=== PATIENT | male | born 1935 | race Caucasian/White ===

== ENCOUNTER 2017-03-18 00:54 | Day surgery (SDC) | payer MEDICARE, OTHER ==
[~2017-03-18 00:54] MED LIST: ALLERGY MEDICAT25 MG PO; AMLO5 PO; ATOR10; ATOR40TA PO; ATOR80 PO; Adult Low Dose81 MG PO; CLOP75 PO; DIPH50 PO; ELIQUIS2.5 MG PO; ELIQUIS5 MG PO; FOLI1 PO; HYDACE25S; INFLECTRA100 MG IV; LISINOPRIL PO; MELO7.5 PO; METHOTREXA25 MG/1 M8 IJ; METO50ER PO; MULVITMIND PO; Mobic15 MG PO; OMEPRAZOLE MAGN20 MG PO; OXYACE7.5T PO; PRAV20 PO; Prinivil10 MG PO; Remicade100 MG IV; TAMS.4ER PO
[2017-07-06] MEDS ORDERED: VITAMIN D50000 UNIT PO (09:11)
[2017-08-24] MEDS ORDERED: MELO7.5 PO (10:10)
[2017-08-24] MEDS ORDERED: METO50ER PO (10:10)
[2017-08-24] MEDS ORDERED: CLOP75 PO (10:10)
[2017-08-24] MEDS ORDERED: AMLO5 PO (10:12)
[2017-08-24] MEDS ORDERED: ATOR80 PO (10:12)
[2017-08-24] MEDS ORDERED: OMEPRAZOLE MAGN20 MG PO (10:13)
[2017-08-24] MEDS ORDERED: ASPI81CH PO (10:13)
[2017-08-24] MEDS ORDERED: FOLI1 PO (10:14)
[2017-08-24] MEDS ORDERED: REMICADE (10:14)
[2017-08-24] MEDS ORDERED: METHOTREXA25 MG/1 M8 IM (10:14)
[2017-08-24] MEDS ORDERED: ELIQUIS2.5 MG PO (10:17)
[2017-08-24] MEDS ORDERED: Vitamin B Comple1 EA PO (10:17)
[2017-08-24] MEDS ORDERED: Vitamin D2000 UNIT PO (10:18)
== END 2017-03-18 11:38 | disposition home or self-care (01) ==
LOC: ATC 00:54
DX: K51.90 Ulcerative colitis, unspecified, without complications (principal)
CPT/HCPCS: 96413; 96415; J7050; Q5102-ZB

== ENCOUNTER 2017-05-11 00:22 | Day surgery (SDC) | payer MEDICARE, OTHER ==
[2017-07-06] MEDS ORDERED: VITAMIN D50000 UNIT PO (09:11)
[2017-08-24] MEDS ORDERED: METO50ER PO (10:10)
[2017-08-24] MEDS ORDERED: CLOP75 PO (10:10)
[2017-08-24] MEDS ORDERED: MELO7.5 PO (10:10)
[2017-08-24] MEDS ORDERED: ATOR80 PO (10:12)
[2017-08-24] MEDS ORDERED: AMLO5 PO (10:12)
[2017-08-24] MEDS ORDERED: ASPI81CH PO (10:13)
[2017-08-24] MEDS ORDERED: OMEPRAZOLE MAGN20 MG PO (10:13)
[2017-08-24] MEDS ORDERED: REMICADE (10:14)
[2017-08-24] MEDS ORDERED: FOLI1 PO (10:14)
[2017-08-24] MEDS ORDERED: METHOTREXA25 MG/1 M8 IM (10:14)
[2017-08-24] MEDS ORDERED: Vitamin B Comple1 EA PO (10:17)
[2017-08-24] MEDS ORDERED: ELIQUIS2.5 MG PO (10:17)
[2017-08-24] MEDS ORDERED: Vitamin D2000 UNIT PO (10:18)
== END 2017-05-11 11:42 | disposition home or self-care (01) ==
LOC: ATC 00:22
DX: K51.90 Ulcerative colitis, unspecified, without complications (principal)
CPT/HCPCS: 96413; 96415; J7050; Q5102-ZB

== ENCOUNTER 2017-08-31 06:53 | Day surgery (SDC) | payer MEDICARE, OTHER ==
[~2017-08-31 06:53] MED LIST changes: +ASPI81CH PO; +METHOTREXA25 MG/1 M8 IM; +REMICADE; +VITAMIN D50000 UNIT PO; +Vitamin B Comple1 EA PO; +Vitamin D2000 UNIT PO
== END 2017-08-31 11:56 | disposition home or self-care (01) ==
LOC: ORSCMMR 06:53 → ORD 08:45 → ORSCMMR 11:56
PROVIDERS: Surgery
PROC: 0YU50JZ Supplement Right Inguinal Region with Synthetic Substitute, Open Approach (ICD-10-PCS; principal; 2017-08-31 08:45)
DX: K40.90 Unilateral inguinal hernia, without obstruction or gangrene, not specified as recurrent (principal); I25.10 Atherosclerotic heart disease of native coronary artery without angina pectoris; I25.2 Old myocardial infarction; Z79.899 Other long term (current) drug therapy
CPT/HCPCS: C1781; J0690; J2001; J2250; J3010; J7120

== ENCOUNTER 2018-01-13 01:11 | Day surgery (SDC) | payer MEDICARE, OTHER | END 2018-01-13 11:06 | disposition home or self-care (01) | LOC: ATC 01:11 | DX: K51.90 Ulcerative colitis, unspecified, without complications (principal); Z87.891 Personal history of nicotine dependence | CPT/HCPCS: 96413; 96415; J7050; Q5103 ==

== ENCOUNTER 2018-03-10 02:22 | Day surgery (SDC) | payer MEDICARE, OTHER | END 2018-03-10 10:59 | disposition home or self-care (01) | LOC: ATC 02:22 | DX: K51.90 Ulcerative colitis, unspecified, without complications (principal) | CPT/HCPCS: 96413; 96415; J7050; Q5103 ==

== ENCOUNTER 2018-05-05 00:47 | Day surgery (SDC) | payer MEDICARE, OTHER ==
[2018-05-05] MEDS ORDERED: LOSA50 PO (09:04)
[2018-05-05] MEDS ORDERED: HYDCHL25 PO (09:04)
[2018-05-05] MEDS ORDERED: INFLECTRA100 MG IV (09:07)
== END 2018-05-05 11:46 | disposition home or self-care (01) ==
LOC: ATC 00:47
DX: K51.90 Ulcerative colitis, unspecified, without complications (principal)
CPT/HCPCS: J7050; Q5103

== ENCOUNTER 2018-06-30 07:15 | Day surgery (SDC) | payer MEDICARE, OTHER ==
[~2018-06-30 07:15] MED LIST changes: +HYDCHL25 PO; +LOSA50 PO
== END 2018-06-30 22:40 | disposition home or self-care (01) ==
LOC: ATC 07:15
DX: K51.90 Ulcerative colitis, unspecified, without complications (principal); M19.071 Primary osteoarthritis, right ankle and foot; M06.9 Rheumatoid arthritis, unspecified; I48.0 Paroxysmal atrial fibrillation; I25.10 Atherosclerotic heart disease of native coronary artery without angina pectoris; I25.2 Old myocardial infarction; K21.9 Gastro-esophageal reflux disease without esophagitis; Z87.891 Personal history of nicotine dependence; Z79.899 Other long term (current) drug therapy; Z79.02 Long term (current) use of antithrombotics/antiplatelets; Z79.82 Long term (current) use of aspirin
CPT/HCPCS: 96413; 96415; J7050; Q5103

== ENCOUNTER 2018-08-25 02:00 | Day surgery (SDC) | payer MEDICARE, OTHER | END 2018-08-25 12:03 | disposition home or self-care (01) | LOC: ATC 02:00 | DX: K51.90 Ulcerative colitis, unspecified, without complications (principal); I25.10 Atherosclerotic heart disease of native coronary artery without angina pectoris; Z87.891 Personal history of nicotine dependence | CPT/HCPCS: 96413; 96415 ==

== ENCOUNTER 2018-10-20 00:19 | Day surgery (SDC) | payer MEDICARE, OTHER | END 2018-10-20 12:21 | disposition home or self-care (01) | LOC: ATC 00:19 | DX: K51.90 Ulcerative colitis, unspecified, without complications (principal); M19.071 Primary osteoarthritis, right ankle and foot; M06.9 Rheumatoid arthritis, unspecified; I48.0 Paroxysmal atrial fibrillation; I25.10 Atherosclerotic heart disease of native coronary artery without angina pectoris; I25.2 Old myocardial infarction; Z79.899 Other long term (current) drug therapy; Z79.02 Long term (current) use of antithrombotics/antiplatelets; Z79.82 Long term (current) use of aspirin; Z87.891 Personal history of nicotine dependence | CPT/HCPCS: 96413; 96415; J1720; J7050; Q5103 ==

== ENCOUNTER 2018-12-13 08:52 | Day surgery (SDC) | payer MEDICARE, OTHER | END 2018-12-13 11:45 | disposition home or self-care (01) | LOC: ATC 08:52 | DX: K51.90 Ulcerative colitis, unspecified, without complications (principal); I25.10 Atherosclerotic heart disease of native coronary artery without angina pectoris; I25.2 Old myocardial infarction; M06.9 Rheumatoid arthritis, unspecified; Z95.5 Presence of coronary angioplasty implant and graft; Z87.891 Personal history of nicotine dependence | CPT/HCPCS: 96413; 96415; J7050; Q5103 ==

== ENCOUNTER 2019-02-07 00:09 | Day surgery (SDC) | payer MEDICARE, OTHER | END 2019-02-07 11:24 | disposition home or self-care (01) | LOC: ATC 00:09 | DX: K51.90 Ulcerative colitis, unspecified, without complications (principal); M06.9 Rheumatoid arthritis, unspecified; I48.0 Paroxysmal atrial fibrillation; M19.071 Primary osteoarthritis, right ankle and foot; I25.10 Atherosclerotic heart disease of native coronary artery without angina pectoris; I25.2 Old myocardial infarction; Z79.01 Long term (current) use of anticoagulants; Z79.02 Long term (current) use of antithrombotics/antiplatelets; Z79.82 Long term (current) use of aspirin; Z79.899 Other long term (current) drug therapy; Z95.5 Presence of coronary angioplasty implant and graft; Z87.891 Personal history of nicotine dependence | CPT/HCPCS: A9270; J1720; J7050; Q0163; Q5103 ==

== ENCOUNTER 2019-04-04 00:13 | Day surgery (SDC) | payer MEDICARE, OTHER | END 2019-04-04 11:02 | disposition home or self-care (01) | LOC: ATC 00:13 | DX: K51.90 Ulcerative colitis, unspecified, without complications (principal); M06.9 Rheumatoid arthritis, unspecified; I48.0 Paroxysmal atrial fibrillation; I25.10 Atherosclerotic heart disease of native coronary artery without angina pectoris; I25.2 Old myocardial infarction; G56.20 Lesion of ulnar nerve, unspecified upper limb; Z79.01 Long term (current) use of anticoagulants; Z79.02 Long term (current) use of antithrombotics/antiplatelets; Z79.899 Other long term (current) drug therapy; Z95.5 Presence of coronary angioplasty implant and graft; Z87.891 Personal history of nicotine dependence; M21.42 Flat foot [pes planus] (acquired), left foot; M21.41 Flat foot [pes planus] (acquired), right foot; M19.071 Primary osteoarthritis, right ankle and foot; K21.9 Gastro-esophageal reflux disease without esophagitis | CPT/HCPCS: 96413; 96415; J7050; Q5103 ==

== ENCOUNTER 2019-05-30 00:07 | Day surgery (SDC) | payer MEDICARE, OTHER | END 2019-05-30 11:40 | disposition home or self-care (01) | LOC: ATC 00:07 | DX: K51.90 Ulcerative colitis, unspecified, without complications (principal); M06.9 Rheumatoid arthritis, unspecified; M19.071 Primary osteoarthritis, right ankle and foot; I48.0 Paroxysmal atrial fibrillation; I25.2 Old myocardial infarction; Z95.5 Presence of coronary angioplasty implant and graft; Z79.02 Long term (current) use of antithrombotics/antiplatelets; Z79.82 Long term (current) use of aspirin; Z79.899 Other long term (current) drug therapy; Z87.891 Personal history of nicotine dependence | CPT/HCPCS: 96413; 96415; J7050; Q5103 ==

== ENCOUNTER 2019-07-25 00:04 | Day surgery (SDC) | payer MEDICARE, OTHER | END 2019-07-25 11:59 | disposition home or self-care (01) | LOC: ATC 00:04 | DX: K51.90 Ulcerative colitis, unspecified, without complications (principal); Z79.899 Other long term (current) drug therapy; Z79.01 Long term (current) use of anticoagulants; Z79.02 Long term (current) use of antithrombotics/antiplatelets; I48.91 Unspecified atrial fibrillation; I25.10 Atherosclerotic heart disease of native coronary artery without angina pectoris; M06.9 Rheumatoid arthritis, unspecified | CPT/HCPCS: 96413; 96415; J7050; Q5103 ==

== ENCOUNTER 2019-11-14 00:30 | Day surgery (SDC) | payer MEDICARE, OTHER ==
--- NOTE | 2019-11-14 09:10 | NUR ---
PT DECLINED PRE MEDS.
== END 2019-11-14 12:03 | disposition home or self-care (01) ==
LOC: ATC 00:30
DX: K51.90 Ulcerative colitis, unspecified, without complications (principal); M72.2 Plantar fascial fibromatosis; K21.9 Gastro-esophageal reflux disease without esophagitis; M19.071 Primary osteoarthritis, right ankle and foot; M19.072 Primary osteoarthritis, left ankle and foot; Z87.891 Personal history of nicotine dependence; Q82.8 Other specified congenital malformations of skin
CPT/HCPCS: J7050; Q5103

== ENCOUNTER 2020-01-09 00:26 | Day surgery (SDC) | payer MEDICARE, OTHER | END 2020-01-09 11:50 | disposition home or self-care (01) | LOC: ATC 00:26 | DX: K51.90 Ulcerative colitis, unspecified, without complications (principal); M06.9 Rheumatoid arthritis, unspecified; I48.91 Unspecified atrial fibrillation; I25.10 Atherosclerotic heart disease of native coronary artery without angina pectoris; M19.071 Primary osteoarthritis, right ankle and foot; I25.2 Old myocardial infarction; Z79.01 Long term (current) use of anticoagulants; Z79.1 Long term (current) use of non-steroidal anti-inflammatories (NSAID); Z79.899 Other long term (current) drug therapy; Z95.5 Presence of coronary angioplasty implant and graft; Z87.891 Personal history of nicotine dependence | CPT/HCPCS: 96413; 96415; J7050; Q5103 ==

== ENCOUNTER 2020-03-04 10:46 | Day surgery (SDC) | payer MEDICARE, OTHER | END 2020-03-04 16:22 | disposition home or self-care (01) | LOC: ATC 10:46 | DX: K51.90 Ulcerative colitis, unspecified, without complications (principal); M06.9 Rheumatoid arthritis, unspecified; I48.0 Paroxysmal atrial fibrillation; I25.10 Atherosclerotic heart disease of native coronary artery without angina pectoris; I25.2 Old myocardial infarction; G62.9 Polyneuropathy, unspecified; Z95.5 Presence of coronary angioplasty implant and graft; Z87.891 Personal history of nicotine dependence; Z88.6 Allergy status to analgesic agent; Z79.899 Other long term (current) drug therapy | CPT/HCPCS: 96413; 96415; J7050; Q5103 ==

== ENCOUNTER 2020-04-30 00:10 | Day surgery (SDC) | payer MEDICARE, OTHER ==
--- NOTE | 2020-04-30 09:00 | NUR ---
PT REFUSED PRE-MEDICATIONS.
== END 2020-04-30 11:40 | disposition home or self-care (01) ==
LOC: ATC 00:10
DX: K51.90 Ulcerative colitis, unspecified, without complications (principal); M06.9 Rheumatoid arthritis, unspecified; I48.0 Paroxysmal atrial fibrillation; I25.10 Atherosclerotic heart disease of native coronary artery without angina pectoris; I25.2 Old myocardial infarction; Z95.5 Presence of coronary angioplasty implant and graft; Z87.891 Personal history of nicotine dependence; Z79.02 Long term (current) use of antithrombotics/antiplatelets
CPT/HCPCS: 96413; 96415; J7050; Q5103

== ENCOUNTER 2020-08-20 02:41 | Day surgery (SDC) | payer MEDICARE, OTHER | END 2020-08-20 11:29 | disposition home or self-care (01) | LOC: ATC 02:41 | DX: K51.90 Ulcerative colitis, unspecified, without complications (principal); K21.9 Gastro-esophageal reflux disease without esophagitis; M06.9 Rheumatoid arthritis, unspecified; I48.0 Paroxysmal atrial fibrillation; I25.10 Atherosclerotic heart disease of native coronary artery without angina pectoris; I25.2 Old myocardial infarction; Z95.5 Presence of coronary angioplasty implant and graft | CPT/HCPCS: 96413; 96415; J7050; Q5103 ==

== ENCOUNTER 2020-10-15 01:13 | Day surgery (SDC) | payer MEDICARE, OTHER | END 2020-10-15 11:12 | disposition home or self-care (01) | LOC: ATC 01:13 | DX: K51.911 Ulcerative colitis, unspecified with rectal bleeding (principal); I48.0 Paroxysmal atrial fibrillation; I25.10 Atherosclerotic heart disease of native coronary artery without angina pectoris; Z95.5 Presence of coronary angioplasty implant and graft; I25.2 Old myocardial infarction; M06.9 Rheumatoid arthritis, unspecified | CPT/HCPCS: 96413; 96415; J7050; Q5103 ==

== ENCOUNTER 2020-12-22 02:41 | Day surgery (SDC) | payer MEDICARE, OTHER ==
--- NOTE | 2020-12-22 08:55 | NUR ---
Pt declines pre meds this morning.
== END 2020-12-22 11:36 | disposition home or self-care (01) ==
LOC: ATC 02:41
DX: K51.90 Ulcerative colitis, unspecified, without complications (principal)
CPT/HCPCS: 96413; 96415; J7050; Q5103

== ENCOUNTER 2021-02-18 00:14 | Day surgery (SDC) | payer MEDICARE, OTHER | END 2021-02-18 12:15 | disposition home or self-care (01) | LOC: ATC 00:14 | DX: K51.90 Ulcerative colitis, unspecified, without complications (principal); I25.10 Atherosclerotic heart disease of native coronary artery without angina pectoris; Z87.891 Personal history of nicotine dependence | CPT/HCPCS: J7050; Q5103 ==

== ENCOUNTER 2021-04-15 02:56 | Day surgery (SDC) | payer MEDICARE, OTHER ==
[~2021-04-15] VITALS: Wt 71.5 kg
== END 2021-04-15 11:55 | disposition home or self-care (01) ==
LOC: ATC 02:56
DX: K51.90 Ulcerative colitis, unspecified, without complications (principal); M06.9 Rheumatoid arthritis, unspecified; I48.0 Paroxysmal atrial fibrillation; I25.10 Atherosclerotic heart disease of native coronary artery without angina pectoris; I25.2 Old myocardial infarction; K21.9 Gastro-esophageal reflux disease without esophagitis; Z95.5 Presence of coronary angioplasty implant and graft; Z87.891 Personal history of nicotine dependence; Z79.01 Long term (current) use of anticoagulants; Z79.899 Other long term (current) drug therapy
CPT/HCPCS: J7050; Q5103

== ENCOUNTER 2021-06-10 00:40 | Day surgery (SDC) | payer MEDICARE, OTHER ==
[~2021-06-10] VITALS: Wt 69.1 kg
== END 2021-06-10 11:52 | disposition home or self-care (01) ==
LOC: ATC 00:40
DX: K51.90 Ulcerative colitis, unspecified, without complications (principal); K21.00 Gastro-esophageal reflux disease with esophagitis, without bleeding; K57.30 Diverticulosis of large intestine without perforation or abscess without bleeding
CPT/HCPCS: J7050; Q5103

== ENCOUNTER → 2021-07-22 | Outpatient (CLI) | payer MEDICARE, OTHER | END | disposition home or self-care (01) | LOC: LAB SHORT 11:07 → PLD 11:07 | DX: D48.5 Neoplasm of uncertain behavior of skin (principal) | CPT/HCPCS: 88305 ==

== ENCOUNTER 2021-09-30 02:26 | Day surgery (SDC) | payer MEDICARE, OTHER | END 2021-09-30 11:26 | disposition home or self-care (01) | LOC: ATC 02:26 | DX: K51.90 Ulcerative colitis, unspecified, without complications (principal) | CPT/HCPCS: 96413; 96415; J7050; Q5103 ==

== ENCOUNTER 2022-01-20 02:37 | Day surgery (SDC) | payer MEDICARE, OTHER | END 2022-01-20 11:45 | disposition home or self-care (01) | LOC: ATC 02:37 | DX: K51.90 Ulcerative colitis, unspecified, without complications (principal); K21.00 Gastro-esophageal reflux disease with esophagitis, without bleeding; K57.30 Diverticulosis of large intestine without perforation or abscess without bleeding | CPT/HCPCS: 96413; 96415; J7050; Q5103 ==

== ENCOUNTER 2022-03-17 01:22 | Day surgery (SDC) | payer MEDICARE, OTHER | END 2022-03-17 11:35 | disposition home or self-care (01) | LOC: ATC 01:22 | DX: K51.90 Ulcerative colitis, unspecified, without complications (principal); K21.00 Gastro-esophageal reflux disease with esophagitis, without bleeding; K57.30 Diverticulosis of large intestine without perforation or abscess without bleeding | CPT/HCPCS: 96413; 96415; J7050; Q5103 ==

== ENCOUNTER 2022-05-12 00:37 | Day surgery (SDC) | payer MEDICARE, OTHER ==
[~2022-05-12] VITALS: Wt 67.7 kg
== END 2022-05-12 11:18 | disposition home or self-care (01) ==
LOC: ATC 00:37
DX: K51.90 Ulcerative colitis, unspecified, without complications (principal)
CPT/HCPCS: 96413; 96415; J7050; Q5103

== ENCOUNTER 2022-07-07 02:36 | Day surgery (SDC) | payer MEDICARE, OTHER ==
[2022-07-07 09:00] VITALS: BP 117/65
== END 2022-07-07 11:37 | disposition home or self-care (01) ==
LOC: ATC 02:36
DX: K51.90 Ulcerative colitis, unspecified, without complications (principal)
CPT/HCPCS: 96413; 96415; J7050; Q5103

== ENCOUNTER 2022-10-27 05:46 | Day surgery (SDC) | payer MEDICARE, OTHER ==
[2022-10-27 09:05] VITALS: BP 131/80
== END 2022-10-27 11:28 | disposition home or self-care (01) ==
LOC: ATC 05:46
DX: K51.90 Ulcerative colitis, unspecified, without complications (principal)
CPT/HCPCS: 96413; 96415; J7050; Q5103

== ENCOUNTER 2022-12-22 02:25 | Day surgery (SDC) | payer MEDICARE, OTHER ==
[2022-12-22 09:23] VITALS: BP 112/64
== END 2022-12-22 12:09 | disposition home or self-care (01) ==
LOC: ATC 02:25
DX: K51.90 Ulcerative colitis, unspecified, without complications (principal)
CPT/HCPCS: 96413; 96415; J7050; Q5103

== ENCOUNTER → 2023-01-27 | Outpatient (CLI) | payer MEDICARE, OTHER ==
[2023-01-27 15:06] LABS: Stool Occult Bld Immuno 1 Negative (NEGATIVE)
== END | disposition home or self-care (01) ==
LOC: EDSTATUS 07:49 → LAB 10:34 → LAB SHORT 10:34
PROVIDERS: Internal Medicine Gastroenterology
DX: D64.9 Anemia, unspecified (principal)
CPT/HCPCS: 82274

== ENCOUNTER 2023-02-16 02:06 | Day surgery (SDC) | payer MEDICARE, OTHER ==
[~2023-02-16] VITALS: Wt 70.7 kg
[2023-02-16 09:48] VITALS: BP 142/83
== END 2023-02-16 11:45 | disposition home or self-care (01) ==
LOC: ATC 02:06
DX: K51.90 Ulcerative colitis, unspecified, without complications (principal); D50.9 Iron deficiency anemia, unspecified; K21.9 Gastro-esophageal reflux disease without esophagitis; K57.30 Diverticulosis of large intestine without perforation or abscess without bleeding; Z79.01 Long term (current) use of anticoagulants; Z79.899 Other long term (current) drug therapy
CPT/HCPCS: 96413; 96415; J7050; Q5103

== ENCOUNTER 2023-04-13 02:45 | Day surgery (SDC) | payer MEDICARE, OTHER ==
[2023-04-13 09:20] VITALS: BP 142/90
== END 2023-04-13 11:59 | disposition home or self-care (01) ==
LOC: ATC 02:45
DX: K51.90 Ulcerative colitis, unspecified, without complications (principal); D64.9 Anemia, unspecified; K21.9 Gastro-esophageal reflux disease without esophagitis; Z79.899 Other long term (current) drug therapy
CPT/HCPCS: 96413; 96415; J7050; Q5103

== ENCOUNTER 2024-03-28 01:14 | Day surgery (SDC) | payer MEDICARE, OTHER ==
[~2024-03-28 01:14] MED LIST changes: +Infliximab-DYYB 400 MG in NS 250 ML IV SCH
[2024-03-28 08:58] VITALS: BP 129/72
== END 2024-03-28 11:33 | disposition home or self-care (01) ==
LOC: ATC 01:14
DX: K51.90 Ulcerative colitis, unspecified, without complications (principal); K21.9 Gastro-esophageal reflux disease without esophagitis; Z87.891 Personal history of nicotine dependence; Z79.899 Other long term (current) drug therapy
CPT/HCPCS: 96413; 96415; J7050; Q5103

== ENCOUNTER 2024-05-21 02:19 | Day surgery (SDC) | payer MEDICARE, OTHER ==
[~2024-05-21] VITALS: Wt 69.9 kg
[~2024-05-21 02:19] MED LIST changes: -Infliximab-DYYB 400 MG in NS 250 ML IV SCH
[2024-05-21] MEDS ORDERED: Infliximab-DYYB 400 MG in NS 250 ML IV SCH (06:00)
[2024-05-21] MEDS ORDERED: DiphenhydrAMINE HCL 25 MG Cap PO SCH (07:10)
[2024-05-21] MEDS ORDERED: Hydrocortisone Sod Succinate 100 MG Vial IV SCH (07:10)
[2024-05-21] MEDS ORDERED: Acetaminophen 325 MG TABLET PO SCH (07:10)
[2024-05-21 09:07] VITALS: BP 145/86
== END 2024-05-21 11:45 | disposition home or self-care (01) ==
LOC: ATC 02:19
DX: K51.90 Ulcerative colitis, unspecified, without complications (principal); D64.9 Anemia, unspecified; K21.9 Gastro-esophageal reflux disease without esophagitis; Z79.01 Long term (current) use of anticoagulants; Z79.899 Other long term (current) drug therapy; Z87.891 Personal history of nicotine dependence
CPT/HCPCS: 96413; 96415; J7050; Q5103

== ENCOUNTER → 2024-06-30 | Outpatient (CLI) | payer MEDICARE, OTHER ==
[2024-06-30 16:50] LABS: BASOPHILS ABSOLUTE AUTO 0.03 K/mm3 (0.00-0.23); BASOPHILS PERCENT AUTO 0 % (0-2); EOSINOPHILS ABSOLUTE AUTO 0.19 K/mm3 (0.00-0.68); EOSINOPHILS PERCENT AUTO 2 % (0-6); Hematocrit 40.7 % (37.0-53.0); Hemoglobin 13.3 g/dL (13.5-17.5); IMMATURE GRAN ABSOLUTE AUTO 0.04 K/mm3 (0.00-0.10); IMMATURE GRAN PERCENT AUTO 1 % (0-1); LYMPHOCYTES ABSOLUTE AUTO 0.53 K/mm3 (0.84-5.20); LYMPHOCYTES PERCENT AUTO 6 % (21-46); MONOCYTES ABSOLUTE AUTO 1.11 K/mm3 (0.16-1.47); MONOCYTES PERCENT AUTO 14 % (4-13); Mean Corpuscular HGB 31.7 pg (26.0-34.0); Mean Corpuscular HGB Conc 32.7 g/dL (31.5-36.5); Mean Corpuscular Volume 97 fL (80-100); Mean Platelet Volume 10.3 fL (9.1-12.4); NEUTROPHILS ABSOLUTE AUTO 6.32 K/mm3 (1.96-9.15); NEUTROPHILS PERCENT AUTO 77 % (41-73); Platelet Count 129 K/mm3 (150-400); RDW Coefficient Variation 17.6 % (11.7-14.2); RDW Standard Deviation 62.4 fL (35.1-46.3); White Blood Cell Count 8.22 K/mm3 (4.00-11.30)
[2024-06-30 17:02] LABS: Albumin/Globulin Ratio 0.8 (0.8-1.8); Bilirubin, Total 1.3 mg/dL (0.1-1.0); Bun/Creatinine Ratio 17.2 (12.0-20.0); Calcium, Blood 8.8 mg/dL (8.5-10.1); Creatinine, Blood 1.86 mg/dL (0.60-1.20); Globulin, Blood 3.7 g/dL (2.2-4.0); Potassium, Blood 4.3 mmol/L (3.5-5.5); Total Protein, Blood 6.7 g/dL (6.4-8.2)
== END | disposition home or self-care (01) ==
LOC: LAB SHORT 16:46 → LAB 16:46
PROVIDERS: Physician Assistant
DX: R10.9 Unspecified abdominal pain (principal)
CPT/HCPCS: 80053; 85025

== ENCOUNTER 2024-07-18 02:01 | Day surgery (SDC) | payer MEDICARE, OTHER ==
[2024-07-18] MEDS ORDERED: Infliximab-DYYB 400 MG in NS 250 ML IV SCH (06:00)
[2024-07-18 09:15] VITALS: BP 123/66
== END 2024-07-18 11:46 | disposition home or self-care (01) ==
LOC: ATC 02:01
DX: K51.90 Ulcerative colitis, unspecified, without complications (principal); K21.9 Gastro-esophageal reflux disease without esophagitis; Z87.891 Personal history of nicotine dependence; Z79.01 Long term (current) use of anticoagulants; Z79.899 Other long term (current) drug therapy
CPT/HCPCS: 96413; 96415; J7050; Q5103

== ENCOUNTER 2024-11-16 03:46 | Day surgery (SDC) | payer MEDICARE, OTHER ==
[2024-11-16 08:55] VITALS: BP 132/68
== END 2024-11-16 11:34 | disposition home or self-care (01) ==
LOC: ATC 03:46
DX: K51.90 Ulcerative colitis, unspecified, without complications (principal); K21.9 Gastro-esophageal reflux disease without esophagitis; K30 Functional dyspepsia; Z87.891 Personal history of nicotine dependence; Z79.01 Long term (current) use of anticoagulants; Z79.02 Long term (current) use of antithrombotics/antiplatelets; Z79.899 Other long term (current) drug therapy
CPT/HCPCS: 96413; 96415; J7050; Q5103

== ENCOUNTER 2025-01-02 02:23 | Day surgery (SDC) | payer MEDICARE, OTHER ==
[~2025-01-02] VITALS: Wt 64.7 kg
[2025-01-02 09:26] VITALS: BP 146/72
== END 2025-01-02 12:01 | disposition home or self-care (01) ==
LOC: ATC 02:23
DX: K51.90 Ulcerative colitis, unspecified, without complications (principal); K21.00 Gastro-esophageal reflux disease with esophagitis, without bleeding; Z87.891 Personal history of nicotine dependence; Z79.899 Other long term (current) drug therapy
CPT/HCPCS: 96413; 96415; J7050; Q5103